=== PATIENT | female | born 1975 | race American Indian/Alaskan Native ===

== ENCOUNTER 2018-04-13 19:09 | Emergency (ER) | payer SELFPAY ==
--- NOTE | 2018-04-13 19:52 | Emergency Department Report ---
ED General Adult HPI - General Chief complaint: Vaginal Bleeding Stated complaint: VAGINAL BLEEDING Time Seen by Provider: 04/13/18 19:48 Source: EMS Mode of arrival: Ambulatory Limitations: No Limitations - History of Present Illness Initial comments: Patient is a 43-year-old female who presents with vaginal bleeding. Patient has some crampy abdominal pain. Patient states that she has been using multiple pads for her vaginal bleeding and that she also has been having cramps. Her cramps are a 6/10 it is an achy type of pain it doesn't radiate. Nothing makes her symptoms better and nothing makes them worse. - Related Data Previous Rx's Medication Instructions Recorded Last Taken Type Naproxen Sodium [Naproxen Sodium 550 mg PO BID #30 tablet 04/14/18 Unknown Rx Ds] Allergies Allergy/AdvReac Type Severity Reaction Status Date / Time No Known Allergies Allergy Unverified 04/13/18 19:34 ED Review of Systems ROS: Stated complaint: VAGINAL BLEEDING Other details as noted in HPI Constitutional: denies: chills, fever Eyes: denies: eye pain, eye discharge, vision change ENT: denies: ear pain, throat pain Respiratory: denies: cough, shortness of breath, wheezing Cardiovascular: denies: chest pain, palpitations Endocrine: no symptoms reported Gastrointestinal: abdominal pain. denies: nausea, diarrhea Genitourinary: as per HPI. denies: urgency, dysuria, discharge Musculoskeletal: denies: back pain, joint swelling, arthralgia Skin: denies: rash, lesions Neurological: denies: headache, weakness, paresthesias Psychiatric: denies: anxiety, depression Hematological/Lymphatic: denies: easy bleeding, easy bruising ED Past Medical Hx - Past Medical History Previous Medical History?: No - Surgical History Past Surgical History?: No - Social History Smoking Status: Never Smoker Substance Use Type: None - Medications Home Medications: Home Medications Medication Instructions Recorded Confirmed Last Taken Type Naproxen Sodium [Naproxen Sodium 550 mg PO BID #30 tablet 04/14/18 Unknown Rx Ds] ED Physical Exam - General Limitations: No Limitations General appearance: alert, in no apparent distress - Head Head exam: Present: atraumatic, normocephalic - Eye Eye exam: Present: normal appearance - ENT ENT exam: Present: mucous membranes moist - Neck Neck exam: Present: normal inspection - Respiratory Respiratory exam: Present: normal lung sounds bilaterally. Absent: respiratory distress - Cardiovascular Cardiovascular Exam: Present: regular rate, normal rhythm. Absent: systolic murmur, diastolic murmur, rubs, gallop - GI/Abdominal GI/Abdominal exam: Present: soft, normal bowel sounds - External exam: Present: bleeding - Extremities Exam Extremities exam: Present: normal inspection - Back Exam Back exam: Present: normal inspection - Neurological Exam Neurological exam: Present: alert, oriented X3 - Psychiatric Psychiatric exam: Present: normal affect, normal mood - Skin Skin exam: Present: warm, dry, intact, normal color. Absent: rash ED Course Vital Signs 04/13/18 04/13/18 04/13/18 19:30 19:45 20:00 Temperature 98.4 F Pulse Rate 88 77 72 Respiratory 14 11 L 14 Rate Blood Pressure 114/74 130/47 130/47 O2 Sat by Pulse 98 100 100 Oximetry 04/13/18 04/13/18 04/13/18 20:15 20:30 20:45 Temperature Pulse Rate 76 81 78 Respiratory 12 12 15 Rate Blood Pressure 120/66 114/76 118/68 O2 Sat by Pulse 100 100 99 Oximetry 04/13/18 04/13/18 04/13/18 21:00 21:15 21:30 Temperature Pulse Rate 91 H 86 78 Respiratory 15 11 L 14 Rate Blood Pressure 118/68 119/63 112/71 O2 Sat by Pulse 99 99 99 Oximetry 04/13/18 04/13/18 04/13/18 21:45 22:00 22:15 Temperature Pulse Rate 74 69 73 Respiratory 14 11 L 13 Rate Blood Pressure 124/64 115/56 117/67 O2 Sat by Pulse Oximetry 04/13/18 04/13/18 22:30 22:45 Temperature Pulse Rate 82 79 Respiratory 13 13 Rate Blood Pressure 111/60 110/62 O2 Sat by Pulse Oximetry ED Medical Decision Making - Lab Data Result diagrams: 04/13/18 20:01 Lab Results 04/13/18 04/13/18 04/13/18 Range/Units 20:01 20:01 20:01 WBC 4.7 (4.5-11.0) K/mm3 RBC 4.35 (3.65-5.03) M/mm3 Hgb 13.5 (11.8-15.2) gm/dl Hct 39.7 (35.5-45.6) % MCV 91 (84-94) fl MCH 31 (28-32) pg MCHC 34 (32-34) % RDW 13.1 L (13.2-15.2) % Plt Count 273 (140-440) K/mm3 Lymph % (Auto) 39.8 H (13.4-35.0) % [place] % (Auto) 10.6 H (0.0-7.3) % Eos % (Auto) 1.9 (0.0-4.3) % Baso % (Auto) 0.9 (0.0-1.8) % Lymph # 1.9 (1.2-5.4) K/mm3 [place] # 0.5 (0.0-0.8) K/mm3 Eos # 0.1 (0.0-0.4) K/mm3 Baso # 0.0 (0.0-0.1) K/mm3 Seg Neutrophils % 46.8 (40.0-70.0) % Seg Neutrophils # 2.2 (1.8-7.7) K/mm3 HCG, Qual (Negative) HCG, Quant 95458 H (0-4) mIU/mL Blood Type O POSITIVE Antibody Screen Negative 04/13/18 Range/Units 20:01 WBC (4.5-11.0) K/mm3 RBC (3.65-5.03) M/mm3 Hgb (11.8-15.2) gm/dl Hct (35.5-45.6) % MCV (84-94) fl MCH (28-32) pg MCHC (32-34) % RDW (13.2-15.2) % Plt Count (140-440) K/mm3 Lymph % (Auto) (13.4-35.0) % [place] % (Auto) (0.0-7.3) % Eos % (Auto) (0.0-4.3) % Baso % (Auto) (0.0-1.8) % Lymph # (1.2-5.4) K/mm3 [place] # (0.0-0.8) K/mm3 Eos # (0.0-0.4) K/mm3 Baso # (0.0-0.1) K/mm3 Seg Neutrophils % (40.0-70.0) % Seg Neutrophils # (1.8-7.7) K/mm3 HCG, Qual Positive (Negative) HCG, Quant (0-4) mIU/mL Blood Type Antibody Screen - Radiology Data Radiology results: report reviewed, image reviewed Transvaginal ultrasound: Shows no ectopic and no viable in the uterus - Medical Decision Making Cdx: Complete misscarriage ddx: , incomplete misscarriage I will get cbc, type and screen, IV pain medication, oral pain medication and transvaginal ultrasound. Critical care attestation.: If time is entered above; I have spent that time in minutes in the direct care of this critically ill patient, excluding procedure time. ED Disposition Clinical Impression: Miscarriage, Vaginal bleeding Disposition: TO HOME OR SELFCARE Is pt being admited?: No Does the pt Need Aspirin: No Condition: Stable Instructions: Spontaneous Miscarriage (ED) Prescriptions: Naproxen Sodium [Naproxen Sodium Ds] 550 mg PO BID #30 tablet Referrals: FLORENCE ISSA MD [Staff Physician] - 3-5 Days
[2018-04-13 20:39] LABS: Basophils % (Auto) 0.9 % (0.0-1.8); Eosinophils # (Auto) 0.1 K/mm3 (0.0-0.4); Eosinophils % (Auto) 1.9 % (0.0-4.3); Hematocrit 39.7 % (35.5-45.6); Hemoglobin 13.5 gm/dl (11.8-15.2); Lymphocytes # (Auto) 1.9 K/mm3 (1.2-5.4); Lymphocytes % (Auto) 39.8 % (13.4-35.0); Mean Corpuscular HGB Conc 34 % (32-34); Mean Corpuscular Volume 91 fl (84-94); Monocytes # (Auto) 0.5 K/mm3 (0.0-0.8); Monocytes % (Auto) 10.6 % (0.0-7.3); Platelet Count 273 K/mm3 (140-440); Red Blood Count 4.35 M/mm3 (3.65-5.03); Red Cell Distribution Width 13.1 % (13.2-15.2)
[2018-04-13] MEDS ORDERED: NACL 0.9% 1000 ML 1,000 ML IV ONE (21:44)
[2018-04-13] MEDS ORDERED: NACL 0.9% 1000 ML 1,000 ML ONE (21:47)
--- NOTE | 2018-04-14 00:04 | Ultrasound Report ---
FINAL REPORT EXAM: US OB TRANSVAGINAL HISTORY: vaginal bleeding TECHNIQUE: Transvaginal imaging was obtained of the pelvis. FINDINGS: The uterus is anteverted measuring 11.4 cm x 5.4 cm x 6.4 cm. The endometrial thickness is 24.5 mm. T he endometrium has a heterogeneous appearance. Retained products of conception cannot be excluded. Th ere is no evidence of an intrauterine gestational sac or embryo. Free fluid is not seen. Left ovary measures 3 cm x 1.7 cm x 2.8 cm. There is a 1.9 cm complex cyst in left ovary possibly rep resenting a corpus luteum cyst. The right ovary is not seen. There are no adnexal masses or fluid collections. IMPRESSION: No evidence of an intact IUP or ectopic . Thickened endometrium with heterogeneous echotexture. Retained products of conception cannot be exclu ded. Complex 1.9 cm cyst in left ovary possibly representing a corpus luteum cyst.
[2018-04-14] MEDS ORDERED: TYLENOL PO ONE (00:52)
[2018-04-14] MEDS ORDERED: TORADOL IV ONE (00:52)
[2018-04-14 02:47] VITALS: BP 105/58
== END 2018-04-14 02:10 | disposition home or self-care (01) ==
LOC: EDSEX → ED 19:09
DX: N93.9 Abnormal uterine and vaginal bleeding, unspecified (principal)
CPT/HCPCS: 36415; 76817; 84702; 84703; 85025; 86850; 86900; 86901; 96374; 99284; J1885; J7030

== ENCOUNTER 2019-10-06 14:41 | Emergency (ER) | payer SELFPAY ==
[2019-10-06 15:00] VITALS: BP 124/77
--- NOTE | 2019-10-06 15:19 | Emergency Department Report ---
Blank Doc - Documentation Documentation: 44-year-old female that presents with vaginal bleeding and pelvic pain. Unsure if she is . This initial assessment/diagnostic orders/clinical plan/treatment(s) is/are subject to change based on patient's health status, clinical progression and re- assessment by fellow clinical providers in the ED. Further treatment and workup at subsequent clinical providers discretion. Patient/guardians urged not to elope from the ED as their condition may be serious if not clinically assessed and managed. Initial orders include: 1- Patient sent to [facility] for further evaluation and treatment 2- labs 3- UA
[2019-10-06 15:30] LABS: Bilirubin,Urine NEG (Negative); Blood,Urine NEG (Negative); Color,Urine Yellow (Yellow); Hyaline Casts,Urine 1 /LPF; Mucus,Urine 1+ /HPF; Urobilinogen,Urine < 2.0 mg/dL (<2.0)
[2019-10-06 16:33] LABS: Basophils # (Auto) 0.1 K/mm3 (0.0-0.1); Basophils % (Auto) 1.1 % (0.0-1.8); Eosinophils # (Auto) 0.1 K/mm3 (0.0-0.4); Eosinophils % (Auto) 1.5 % (0.0-4.3); Hematocrit 44.9 % (30.3-42.9); Hemoglobin 14.6 gm/dl (10.1-14.3); Lymphocytes # (Auto) 2.2 K/mm3 (1.2-5.4); Lymphocytes % (Auto) 43.8 % (13.4-35.0); Mean Corpuscular HGB Conc 33 % (30-34); Mean Corpuscular Volume 94 fl (79-97); Monocytes # (Auto) 0.6 K/mm3 (0.0-0.8); Monocytes % (Auto) 11.1 % (0.0-7.3); Platelet Count 314 K/mm3 (140-440); Red Blood Count 4.78 M/mm3 (3.65-5.03); Red Cell Distribution Width 13.9 % (13.2-15.2)
--- NOTE | 2019-10-06 20:59 | Emergency Department Report ---
ED Female HPI - General Chief complaint: Vaginal Bleeding Stated complaint: MISSCARRIAGE Time Seen by Provider: 10/06/19 15:17 Source: patient Mode of arrival: Ambulatory Limitations: No Limitations - History of Present Illness Initial comments: 44-year-old -[place] Citizen female resents emerged department complaining of pelvic cramping in a sharp fashion associated with some scant bleeding with breakthrough menstrual spotting suspicious of . Ports no vaginal discharge. Ports no chest pain, palpitations, nausea, vomiting, fever, chills, sweats, trauma. - Related Data Previous Rx's Medication Instructions Recorded Last Taken Type Naproxen Sodium [Naproxen Sodium 550 mg PO BID #30 tablet 04/14/18 Unknown Rx Ds] Allergies Allergy/AdvReac Type Severity Reaction Status Date / Time No Known Allergies Allergy Unverified 04/13/18 19:34 ED Review of Systems ROS: Stated complaint: MISSCARRIAGE Other details as noted in HPI Comment: All other systems reviewed and negative ED Past Medical Hx - Past Medical History Previous Medical History?: No - Surgical History Additional Surgical History: Miscarriage - Social History Smoking Status: Never Smoker Substance Use Type: None - Medications Home Medications: Home Medications Medication Instructions Recorded Confirmed Last Taken Type Naproxen Sodium [Naproxen Sodium 550 mg PO BID #30 tablet 04/14/18 Unknown Rx Ds] ED Physical Exam - General Limitations: No Limitations General appearance: alert, in no apparent distress - Head Head exam: Present: atraumatic, normocephalic - Eye Eye exam: Present: normal appearance - ENT ENT exam: Present: mucous membranes moist - Neck Neck exam: Present: normal inspection - Respiratory Respiratory exam: Present: normal lung sounds bilaterally. Absent: respiratory distress - Cardiovascular Cardiovascular Exam: Present: regular rate, normal rhythm. Absent: systolic murmur, diastolic murmur, rubs, gallop - GI/Abdominal GI/Abdominal exam: Present: soft, normal bowel sounds - Extremities Exam Extremities exam: Present: normal inspection - Back Exam Back exam: Present: normal inspection - Neurological Exam Neurological exam: Present: alert, oriented X3 - Psychiatric Psychiatric exam: Present: normal affect, normal mood - Skin Skin exam: Present: warm, dry, intact, normal color. Absent: rash ED Course Vital Signs 10/06/19 14:53 Temperature 98.3 F Pulse Rate 79 Respiratory 18 Rate Blood Pressure 124/77 O2 Sat by Pulse 99 Oximetry ED Medical Decision Making - Lab Data Result diagrams: 10/06/19 15:57 Lab Results 10/06/19 10/06/19 10/06/19 Range/Units 15:57 15:57 15:57 WBC 5.0 (4.5-11.0) K/mm3 RBC 4.78 (3.65-5.03) M/mm3 Hgb 14.6 H (10.1-14.3) gm/dl Hct 44.9 H (30.3-42.9) % MCV 94 (79-97) fl MCH 31 (28-32) pg MCHC 33 (30-34) % RDW 13.9 (13.2-15.2) % Plt Count 314 (140-440) K/mm3 Lymph % (Auto) 43.8 H (13.4-35.0) % [place] % (Auto) 11.1 H (0.0-7.3) % Eos % (Auto) 1.5 (0.0-4.3) % Baso % (Auto) 1.1 (0.0-1.8) % Lymph # 2.2 (1.2-5.4) K/mm3 [place] # 0.6 (0.0-0.8) K/mm3 Eos # 0.1 (0.0-0.4) K/mm3 Baso # 0.1 (0.0-0.1) K/mm3 Seg Neutrophils % 42.5 (40.0-70.0) % Seg Neutrophils # 2.1 (1.8-7.7) K/mm3 HCG, Quant < 2 (0-4) mIU/mL Urine Color (Yellow) Urine Turbidity (Clear) Urine pH (5.0-7.0) Ur Specific [place] (1.003-1.030) Urine Protein (Negative) mg/dL Urine Glucose (UA) (Negative) mg/dL Urine Ketones (Negative) mg/dL Urine Blood (Negative) Urine Nitrite (Negative) Urine Bilirubin (Negative) Urine Urobilinogen (<2.0) mg/dL Ur Leukocyte Esterase (Negative) Urine WBC (Auto) (0.0-6.0) /HPF Urine RBC (Auto) (0.0-6.0) /HPF U Epithel Cells (Auto) (0-13.0) /HPF Hyaline Casts /LPF Urine Mucus /HPF Blood Type O POSITIVE 10/06/19 Range/Units Unknown WBC (4.5-11.0) K/mm3 RBC (3.65-5.03) M/mm3 Hgb (10.1-14.3) gm/dl Hct (30.3-42.9) % MCV (79-97) fl MCH (28-32) pg MCHC (30-34) % RDW (13.2-15.2) % Plt Count (140-440) K/mm3 Lymph % (Auto) (13.4-35.0) % [place] % (Auto) (0.0-7.3) % Eos % (Auto) (0.0-4.3) % Baso % (Auto) (0.0-1.8) % Lymph # (1.2-5.4) K/mm3 [place] # (0.0-0.8) K/mm3 Eos # (0.0-0.4) K/mm3 Baso # (0.0-0.1) K/mm3 Seg Neutrophils % (40.0-70.0) % Seg Neutrophils # (1.8-7.7) K/mm3 HCG, Quant (0-4) mIU/mL Urine Color Yellow (Yellow) Urine Turbidity Clear (Clear) Urine pH 5.0 (5.0-7.0) Ur Specific [place] 1.027 (1.003-1.030) Urine Protein 30 mg/dl (Negative) mg/dL Urine Glucose (UA) Neg (Negative) mg/dL Urine Ketones Neg (Negative) mg/dL Urine Blood Neg (Negative) Urine Nitrite Neg (Negative) Urine Bilirubin Neg (Negative) Urine Urobilinogen < 2.0 (<2.0) mg/dL Ur Leukocyte Esterase Neg (Negative) Urine WBC (Auto) 1.0 (0.0-6.0) /HPF Urine RBC (Auto) 3.0 (0.0-6.0) /HPF U Epithel Cells (Auto) 1.0 (0-13.0) /HPF Hyaline Casts 1 /LPF Urine Mucus 1+ /HPF Blood Type - Medical Decision Making 44-year-old [place] Citizen fit female suspicious of with lower abdominal cramping and pain states that she plans on leaving now that she knows she is not as that was the primary thing she came to the emergency department to discover. Critical care attestation.: If time is entered above; I have spent that time in minutes in the direct care of this critically ill patient, excluding procedure time. ED Disposition Clinical Impression: Pelvic cramping, Menses painful Disposition: TO HOME OR SELFCARE Is pt being admited?: No Does the pt Need Aspirin: No Condition: Stable Instructions: Menstruation (ED) Referrals: PRIMARY CARE [Primary Care Provider] - 3-5 Days [facility] [Provider Group] - 3-5 Days
== END 2019-10-06 21:00 | disposition home or self-care (01) ==
LOC: ED 14:41
DX: N94.6 Dysmenorrhea, unspecified (principal); R10.2 Pelvic and perineal pain; Z79.899 Other long term (current) drug therapy
CPT/HCPCS: 36415; 81001; 84702; 85025; 86900; 86901; 99283

== ENCOUNTER 2020-03-31 15:34 | Emergency (ER) | payer SELFPAY ==
[2020-03-31 16:04] VITALS: BP 112/79
--- NOTE | 2020-03-31 19:39 | Emergency Department Report ---
ED Medical Clearance HPI - General Chief complaint: Medical Clearance Stated complaint: POSS BLOOD CLOT Source: patient Mode of arrival: Ambulatory - History of Present Illness Initial comments: Patient is a 45-year-old female with no past medical history presents to the ED with complaint of acute onset persistent bilateral fourth and fifth finger swelling intermittently as well as slight swelling for the last 1 month. Patient states that she is 6 weeks s/p plastic surgery on her buttocks in [facility] and wanted to be evaluated for possible . Patient states that she is on her feet a lot at times. Patient denies leg pain, fever, chills, nausea, vomiting, chest pain, shortness of breath, bilateral leg swelling, dizziness, heavy lifting, numbness and tingling or weakness of upper and lower extremities MD Complaint: medical clearance request, other (Right foot swelling, bilateral 4th and 5th finger mild swelling) -: Sudden, days(s), month(s) (1) Reason for Medical Clearance: other (s/o plastic surgery of buttock) Place: home Alledged Intoxication: No Compliant with Home Medications: No Traumatic Symptoms: other (6 weeks s/p plastic surgery on her buttocks) Associated Symptoms: denies: chest pain, shortness of breath, palpitations, diaphoresis, denies other symptoms, confusion, cough, headaches, anorexia, malaise, nausea/vomiting, rash, syncope, weakness, other Home medications: Previous Rx's Medication Instructions Recorded Last Taken Type Naproxen Sodium [Naproxen Sodium 550 mg PO BID #30 tablet 04/14/18 Unknown Rx Ds] Allergies/Adverse reactions: Allergies Allergy/AdvReac Type Severity Reaction Status Date / Time No Known Allergies Allergy Verified 03/31/20 16:01 ED Review of Systems ROS: Stated complaint: POSS BLOOD CLOT Other details as noted in HPI Constitutional: denies: chills, fever Eyes: denies: eye pain, eye discharge, vision change ENT: denies: ear pain, throat pain Respiratory: denies: cough, shortness of breath, wheezing Cardiovascular: denies: chest pain, palpitations Endocrine: no symptoms reported Gastrointestinal: denies: abdominal pain, nausea, diarrhea Genitourinary: denies: urgency, dysuria, discharge Musculoskeletal: joint swelling (Mild right foot swelling, mild bilateral fourth and fifth fingers swelling). denies: back pain, arthralgia Skin: denies: rash, lesions Neurological: denies: headache, weakness, paresthesias Psychiatric: denies: anxiety, depression Hematological/Lymphatic: denies: easy bleeding, easy bruising ED Past Medical Hx - Past Medical History Previous Medical History?: No - Surgical History Additional Surgical History: Miscarriage/ PLASTIC - Social History Smoking Status: Never Smoker Substance Use Type: None - Medications Home Medications: Home Medications Medication Instructions Recorded Confirmed Last Taken Type Naproxen Sodium [Naproxen Sodium 550 mg PO BID #30 tablet 04/14/18 Unknown Rx Ds] ED Physical Exam - General Limitations: No Limitations General appearance: alert, in no apparent distress - Head Head exam: Present: atraumatic, normocephalic, normal inspection - Eye Eye exam: Present: normal appearance, PERRL, EOMI Pupils: Present: normal accommodation - ENT ENT exam: Present: normal exam, normal orophraynx, mucous membranes moist, TM's normal bilaterally, normal external ear exam - Neck Neck exam: Present: normal inspection, full ROM - Respiratory Respiratory exam: Present: normal lung sounds bilaterally. Absent: respiratory distress, wheezes, rhonchi, chest wall tenderness, accessory muscle use, prolonged expiratory - Cardiovascular Cardiovascular Exam: Present: regular rate, normal rhythm, normal heart sounds. Absent: systolic murmur, diastolic murmur, rubs, gallop - GI/Abdominal GI/Abdominal exam: Present: soft, normal bowel sounds. Absent: tenderness, guarding, rebound, hyperactive bowel sounds, hypoactive bowel sounds, organomegaly - Extremities Exam Extremities exam: Present: normal inspection, full ROM, normal capillary refill - Back Exam Back exam: Present: normal inspection, full ROM. Absent: tenderness, CVA tenderness (R), CVA tenderness (L), muscle spasm, paraspinal tenderness, vertebral tenderness - Neurological Exam Neurological exam: Present: alert, oriented X3, CN II-XII intact, normal gait, reflexes normal - Psychiatric Psychiatric exam: Present: normal affect, normal mood - Skin Skin exam: Present: warm, dry, intact, normal color. Absent: rash ED Course Vital Signs 03/31/20 16:03 Temperature 98.2 F Pulse Rate 99 H Respiratory 16 Rate Blood Pressure 112/79 O2 Sat by Pulse 100 Oximetry ED Medical Decision Making - Medical Decision Making This is a 45-year-old female with no past medical history presents to the ED with complaint of acute onset persistent bilateral fourth and fifth finger swelling intermittently as well as slight swelling for the last 1 month. Patient states that she is 6 weeks s/p plastic surgery on her buttocks in [facility] and wanted to be evaluated for possible . Patient states that she is on her feet a lot at times. In the ED, patient is alert and oriented x3 and is not in distress but anxious about her symptoms. Patient is however hemodynamically stable. Patient physical exam findings: Patient symptoms are not likely due to DVT although the patient gluteal plastic surgery 6 weeks ago. Patient has no significant any signs or symptoms of possible DVT upper and lower extremities bilaterally. Patient was therefore discharged home and advised to elevate legs above heart whenever she lays down or sits down at home. Patient was however advised return to the ED immediately if she develops bilateral lower and upper extremity swelling and pain or shortness of breath and chest pain. Patient was also advised to follow-up with her primary care physician in 5 to 7 days for reevaluation. - Differential Diagnosis DVT; Muscle strain; dependent edema ED Disposition Clinical Impression: Localized swelling of right foot, Swelling of finger of both hands Disposition: DC-01 TO HOME OR SELFCARE Is pt being admited?: No Does the pt Need Aspirin: No Condition: Stable Instructions: [facility] Additional Instructions: Follow up with your Primary care Physician in 5-7 days for reevaluation. Elevate your legs above your heart to improve on your circulation. Return to the ED immediately if symptoms get worse. Referrals: [facility] [Provider Group] - 3-5 Days Time of Disposition: 19:38 Print Language: GREENLAND[place]
== END 2020-03-31 20:15 | disposition home or self-care (01) ==
LOC: ED 15:34
DX: M79.89 Other specified soft tissue disorders (principal); Z79.899 Other long term (current) drug therapy
CPT/HCPCS: 99281